=== PATIENT | female | born 1985 | race Caucasian/White ===

== ENCOUNTER 2020-01-13 11:16 | Inpatient (IN) | payer BC ==
[2020-01-13] MEDS ORDERED: Sodium Chloride 0.9% 10 ML Syringe FLUSH PRN (13:40)
[2020-01-13] MEDS ORDERED: Sodium Chloride 0.9% 10 ML SDV IV PRN (13:40)
[2020-01-13] MEDS ORDERED: Water For Irrigation,Sterile 1,000 ML Container IRR PRN (13:40)
[2020-01-13] MEDS ORDERED: Sodium Chloride 0.9% 2.5 ML Syringe FLUSH PRN (13:40)
[2020-01-13] MEDS ORDERED: Ampicillin 2 GM in Sodium Chloride 0.9% 100 ML IV ONE (14:00)
--- NOTE | 2020-01-13 14:09 | US ---
Limited obstetrical ultrasound: Multiple real-time images were obtained transabdominally. Comparison: Previous obstetrical ultrasound of 10/21/19. presentation: Cephalic Amniotic fluid: ERICH 9.04 cm which compares to 18.81 cm on prior study Heart rate: 132 bpm Impression: 1. Decreasing amniotic fluid as noted above. Diagnostic code #3 This report was dictated in MDT
[2020-01-13] MEDS ORDERED: Ampicillin 1 GM in Sodium Chloride 0.9% 50 ML IV SCH (20:00)
[2020-01-13] MEDS: Ampicillin 1 GM in Sodium Chloride 0.9% 50 ML IV SCH (20:24)
[2020-01-13] MEDS: Lactated Ringers 1,000 ML IV SCH (20:35)
[2020-01-14] MEDS: Ampicillin 1 GM in Sodium Chloride 0.9% 50 ML IV SCH ×4 (02:15→20:25)
--- NOTE | 2020-01-14 09:30 | US ---
Limited obstetrical ultrasound: Multiple real-time images were obtained transabdominally. Comparison: Previous obstetrical ultrasounds are available, most recent exam is 01/13/20. Dates: Current ultrasound: NESTOR 02/22/20, gestational age 34 weeks 3 days Earliest ultrasound (10/21/19): [facility]OR 02/15/20, gestational age 35 weeks 3 days presentation: Cephalic Amniotic fluid: ERICH of 8.55 cm which compares to 9.04 cm on most recent study Measurements: BPD: 8.29 cm - 33 weeks 3 days Head circumference: 30.96 cm - 34 weeks 4 days Abdominal circumference: 32.95 cm - 36 weeks 6 days Femur length: 6.45 cm - 33 weeks 2 days Estimated weight: 2652 g (5 lbs. 14 oz. Heart rate: 144 bpm Growth curves: Various growth parameters are variable at this later gestational age. Growth is believed to be satisfactory from previous exam. Impression: 1. Single intrauterine fetus currently cephalic in presentation. Dates as noted above. 2. Low ERICH of 8.55 comparing to 9.04 on previous study. 3. growth is felt to be appropriate from previous studies. Diagnostic code #3 This report was dictated in MDT
[2020-01-14] MEDS ORDERED: Betamethasone Acetate/Betamethasone Sod Phosphate 30 MG/5 ML MDV IM ONE ×2 (09:43→22:03)
[2020-01-14] MEDS: Docusate Sodium 100 MG Cap PO PRN ×2 (10:20→22:33)
--- NOTE | 2020-01-14 10:37 | PCM.LDHP ---
L&D History of Present Illness - General Date of Service: 01/14/20 Admit Problem/Dx: Patient Status Order with Admit Dx/Problem 01/13/20 11:18 Patient Status [ADT] Routine 01/13/20 13:40 Patient Status [ADT] Routine Admission Diagnosis/Problem Admission Diagnosis/Problem Source of Information: Patient History Limitations: Reports: No Limitations - History of Present Illness Improves with: Reports: None Worsens with: Reports: None Associated Symptoms: Reports: N - Related Data Allergies/Adverse Reactions: Allergies Allergy/AdvReac Type Severity Reaction Status Date / Time No Known Allergies Allergy Verified 01/13/20 11:33 Home Medications: Home Meds Famotidine [Pepcid] 20 mg PO DAILY 01/13/20 [History] Vits #93/Iron Fum/FA [ Formula Tablet] 1 each PO DAILY [History] Past Medical History HEENT History: Reports: Impaired Vision Gastrointestinal History: Reports: Other (See Below) Other Gastrointestinal History: Acid reflux, chronic. 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 low-level pain in back, chiropractic therapy. Neurological History: Reports: Migraines, Other (See Below) Other Neuro History: migraines are triggered by too much caffiene Endocrine/Metabolic History: Reports: Other (See Below) Other Endocrine/Metabolic History: abnormal glucose level testing. - Infectious Disease History Infectious Disease History: Reports: Chicken Pox - Past Surgical History HEENT Surgical History: Reports: None GI Surgical History: Reports: None Endocrine Surgical History: Reports: None Neurological Surgical History: Reports: None Musculoskeletal Surgical History: Reports: None Social & Family History - Tobacco Use Smoking Status *Q: Never Smoker Second Hand Smoke Exposure: No - Caffeine Use Caffeine Use: Reports: None - Recreational Drug Use Recreational Drug Use: No H&P Review of Systems - Review of Systems: Review Of Systems: See Below General: Reports: No Symptoms HEENT: Reports: No Symptoms Pulmonary: Reports: No Symptoms Cardiovascular: Reports: No Symptoms Gastrointestinal: Reports: No Symptoms Genitourinary: Reports: No Symptoms Musculoskeletal: Reports: No Symptoms Skin: Reports: No Symptoms Psychiatric: Reports: No Symptoms Neurological: Reports: No Symptoms Hematologic/Lymphatic: Reports: No Symptoms Immunologic: Reports: No Symptoms L&D Exam - Exam Exam: See Below - Vital Signs Weight: 95.254 kg - OB Specific Fundal Height In cm: 37 Contraction Intensity: Mild Movement: Active Heart Tones: Present Presentation: Vertex - Exam General: Alert, Oriented HEENT: PERRLA, Conjunctiva Clear, EACs Clear, EOMI, Hearing Intact, Mucosa Moist & [place], Nares Patent, Normal Nasal Septum, Posterior Pharynx Clear, TMs Clear Neck: Supple, Trachea Midline Lungs: Clear to Auscultation, Normal Respiratory Effort Cardiovascular: Regular Rate, Regular Rhythm GI/Abdominal Exam: Normal Bowel Sounds, Soft, Non-Tender, No Organomegaly, No Distention, No Abnormal Bruit, No Mass, Pelvis Stable Rectal Exam: Normal Exam, Normal Rectal Tone Genitourinary: Normal external exam, Normal bimanual exam, Normal speculum exam Back Exam: Normal Inspection, Full Range of Motion Extremities: Normal Inspection, Normal Range of Motion, Non-Tender, No Pedal Edema, Normal Capillary Refill Skin: Warm, Dry, Intact Neurological: Cranial Nerves Intact, Reflexes Equal Bilateral Psychiatric: Alert, Normal Affect, Normal Mood - Patient Data Lab Results Last 24 hrs: Laboratory Results - last 24 hr 01/13/20 01/14/20 01/14/20 Range/Units 14:05 05:25 05:26 WBC 11.47 H 11.17 H (4.0-11.0) K/uL RBC 4.05 L 3.91 L (4.30-5.90) M/uL Hgb 12.4 11.9 L (12.0-16.0) g/dL Hct 38.0 36.6 (36.0-46.0) % MCV 93.8 93.6 (80.0-98.0) fL MCH 30.6 30.4 (27.0-32.0) pg MCHC 32.6 32.5 (31.0-37.0) g/dL RDW Std Deviation 48.1 48.2 (28.0-62.0) fl RDW Coeff of Robert 14 14 (11.0-15.0) % Plt Count 288 291 (150-400) K/uL MPV 9.30 9.30 (7.40-12.00) fL Nucleated RBC % 0.0 0.0 /100WBC Nucleated RBCs # 0 0 K/uL Membrane Rupture POSITIVE Result Diagrams: 01/14/20 05:26 Problem List Initiated/Reviewed/Updated: Yes Orders Last 24hrs: Active Orders 24 hr Category Date Time Status Patient Status [ADT] Routine ADT 01/13/20 13:40 Active Bedrest Bathroom Privileges [RC] ASDIRECTED Care 01/13/20 13:37 Active Notify Provider [RC] PRN Care 01/13/20 13:40 Active Peripheral IV Care [RC] PRN Care 01/13/20 13:40 Active Ready for Discharge [RC] PER UNIT ROUTINE Care 01/14/20 08:25 Active Vital Signs [RC] PER UNIT ROUTINE Care 01/13/20 11:18 Inactive Vital Signs [RC] QSPRN Care 01/13/20 20:00 Active Regular Diet [DIET] Diet 01/13/20 Lunch Active Ampicillin 1 gm Med 01/13/20 20:00 Active Sodium Chloride 0.9% [Normal Saline] 50 ml IV Q6H Betamet Acet/Betamet Na Phos [Celestone Soluspan 6 MG/ Med 01/14/20 22:03 Once ML] 12 mg IM ONETIME ONE Docusate Sodium [Colace] Med 01/14/20 10:15 Ordered 100 mg PO BID PRN Lactated Ringers [Ringers, Lactated] 1,000 ml Med 01/13/20 13:45 Active IV ASDIRECTED Sodium Chloride 0.9% [Normal Saline] Med 01/13/20 13:40 Active 10 ml IV ASDIRECTED PRN Sodium Chloride 0.9% [Saline Flush] Med 01/13/20 13:40 Active 10 ml FLUSH ASDIRECTED PRN Sodium Chloride 0.9% [Saline Flush] Med 01/13/20 13:40 Active 2.5 ml FLUSH ASDIRECTED PRN Water For Irrigation,Sterile [Sterile Water for Med 01/13/20 13:40 Active Irrigation] 1,000 ml IRR ASDIRECTED PRN Peripheral IV Insertion Adult [OM.PC] Routine Oth 01/13/20 13:40 Ordered Resuscitation Status Routine Resus Stat 01/13/20 11:18 Ordered Medication Orders Betamethasone Acet/Betameth SodPhos (Celestone Soluspan 6 Mg/Ml) 12 mg IM ONETIME ONE Stop: 04/29/20 22:04 Docusate Sodium (Colace) 100 mg PO BID PRN PRN Reason: Constipation Lactated Ringer's (Ringers, Lactated) 1,000 mls @ 150 mls/hr IV ASDIRECTED [facility] Last Admin: 01/13/20 20:35 Dose: 150 mls/hr Ampicillin Sodium 1 gm/ Sodium (Chloride) 50 mls @ 100 mls/hr IV Q6H [facility] Last Admin: 01/14/20 07:53 Dose: 100 mls/hr Infusion: 01/14/20 02:45 Dose: 100 mls/hr Admin: 01/14/20 02:15 Dose: 100 mls/hr Infusion: 01/13/20 20:54 Dose: 100 mls/hr Admin: 01/13/20 20:24 Dose: 100 mls/hr Sodium Chloride (Saline Flush) 10 ml FLUSH ASDIRECTED PRN PRN Reason: Keep Vein Open Sodium Chloride (Saline Flush) 2.5 ml FLUSH ASDIRECTED PRN PRN Reason: Keep Vein Open Sodium Chloride (Normal Saline) 10 ml IV ASDIRECTED PRN PRN Reason: IV Use Sterile Water (Sterile Water For Irrigation) 1,000 ml IRR ASDIRECTED PRN PRN Reason: delivery Assessment/Plan Comment:: This patient is 34 she is nulliparous she is followed in our clinic primarily by our nurse midwifes she presented to the clinic yesterday with leaking fluid and she have AmniSur. test confirmed positive she have ultrasound which shows adequate amniotic fluid vertex presentation the patient is admitted for observation. The next day the AmniSure is the repeated and it was positive again. Ultrasound today shows a minimum degrees of amniotic fluid and estimated weight is 2652 gm the patient is still not jose alejandro. According to an early ultrasound and repeated on multiple occasion in this at her EDC confirmed and she is 35+4 weeks. The consultation with the compliance specialist steroid injection is given according to the protocol and the she consented for induction of labor. I explained the option to the patient including the option that she could be transferred to tertiary center versus induction here also explained to the patient the possibility of transferring the fetus after it is born if it is need to be. Patient and her asked multiple questions and all their question is answered. And they consented for induction here and delivered here. Start of induction at that night with side effects and Pitocin in accordance with the protocol.
[2020-01-14] MEDS ORDERED: Oxytocin/0.9 % Sodium Chloride 30 UNIT/500 ML BAG IV SCH ×2 (23:45)
[2020-01-14] MEDS ORDERED: Terbutaline 1 MG/ML SDV SUBCUT PRN (23:53)
[2020-01-14] MEDS ORDERED: Misoprostol 25 MCG (1/4 of 100 MCG) Tab VAG PRN ×2 (23:53)
[2020-01-14] MEDS ORDERED: Misoprostol 25 MCG (1/4 of 100 MCG) Tab PO ONE (23:58)
[2020-01-14] MEDS ORDERED: Methylergonovine 0.2 MG/1 ML Amp IM PRN (23:59)
[2020-01-14] MEDS ORDERED: Misoprostol 200 MCG Tab PO PRN (23:59)
[2020-01-14] MEDS ORDERED: Tranexamic Acid 1,000 MG in Sodium Chloride 0.9% 100 ML IV PRN (23:59)
[2020-01-14] MEDS ORDERED: Butorphanol 1 MG/ML SDV IVPUSH PRN (23:59)
[2020-01-14] MEDS ORDERED: Nalbuphine 10 MG/1 ML Vial IVPUSH PRN (23:59)
[2020-01-14] MEDS ORDERED: Ondansetron 4 MG/2 ML SDV IVPUSH PRN (23:59)
[2020-01-14] MEDS ORDERED: Lidocaine 1% 50 ML MDV INJECT PRN (23:59)
[2020-01-14] MEDS ORDERED: Carboprost Tromethamine 250 MCG/1 ML Amp IM PRN (23:59)
[2020-01-15] MEDS: Ampicillin 1 GM in Sodium Chloride 0.9% 50 ML IV SCH ×2 (01:50→08:10)
[2020-01-15] MEDS ORDERED: Bupivicaine/fentaNYL/NS 250 ML ONE (08:50)
[2020-01-15] MEDS ORDERED: Lactated Ringers 1,000 ML IV SCH (09:00)
--- NOTE | 2020-01-15 09:45 | PCM.PREANE ---
Preanesthetic Assessment - Anesthesia/Transfusion/Family Hx Anesthesia History: Prior Anesthesia Without Reaction (oral surgery only) Family History of Anesthesia Reaction: No Transfusion History: No Prior Transfusion(s) Intubation History: Unknown - Review of Systems General: No Symptoms Pulmonary: No Symptoms Cardiovascular: No Symptoms Gastrointestinal: Other (GERD) Neurological: Other (short stature, sacral dimple) Other: Reports: None - Physical Assessment Height: 5 ft Weight: 95.254 kg ASA Class: 2 Mental Status: Alert & Oriented x3 Airway Class: Mallampati = 3 Dentition: Reports: Normal Dentition Thyro-Mental Finger Breadths: 3 ROM/Head Extension: Full Lungs: Clear to Auscultation, Normal Respiratory Effort Cardiovascular: Regular Rate, Regular Rhythm - Lab Values: Laboratory Last Values WBC 11.17 K/uL (4.0-11.0) H 01/14/20 05:26 RBC 3.91 M/uL (4.30-5.90) L 01/14/20 05:26 Hgb 11.9 g/dL (12.0-16.0) L 01/14/20 05:26 Hct 36.6 % (36.0-46.0) 01/14/20 05:26 MCV 93.6 fL (80.0-98.0) 01/14/20 05:26 MCH 30.4 pg (27.0-32.0) 01/14/20 05:26 MCHC 32.5 g/dL (31.0-37.0) 01/14/20 05:26 RDW Std Deviation 48.2 fl (28.0-62.0) 01/14/20 05:26 RDW Coeff of Robert 14 % (11.0-15.0) 01/14/20 05:26 Plt Count 291 K/uL (150-400) 01/14/20 05:26 MPV 9.30 fL (7.40-12.00) 01/14/20 05:26 Nucleated RBC % 0.0 /100WBC 01/14/20 05:26 Nucleated RBCs # 0 K/uL 01/14/20 05:26 Membrane Rupture POSITIVE 01/14/20 05:25 Blood Type O POSITIVE 01/14/20 14:20 Antibody Screen NEGATIVE 01/14/20 14:20 - Allergies Allergies/Adverse Reactions: Allergies Allergy/AdvReac Type Severity Reaction Status Date / Time No Known Allergies Allergy Verified 01/13/20 11:33 - Acknowledgements Anesthesia Type Planned: Epidural Pt an Appropriate Candidate for the Planned Anesthesia: Yes Alternatives and Risks of Anesthesia Discussed w Pt/Guardian: Yes Pt/Guardian Understands and Agrees with Anesthesia Plan: Yes PreAnesthesia Questionnaire HEENT History: Reports: Impaired Vision Gastrointestinal History: Reports: Other (See Below) Other Gastrointestinal History: Acid reflux, chronic. 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 low-level pain in back, chiropractic therapy. Neurological History: Reports: Migraines, Other (See Below) Other Neuro History: migraines are triggered by too much caffiene Endocrine/Metabolic History: Reports: Other (See Below) Other Endocrine/Metabolic History: abnormal glucose level testing. - Infectious Disease History Infectious Disease History: Reports: Chicken Pox - Past Surgical History HEENT Surgical History: Reports: None GI Surgical History: Reports: None Endocrine Surgical History: Reports: None Neurological Surgical History: Reports: None Musculoskeletal Surgical History: Reports: None - SUBSTANCE USE Smoking Status *Q: Never Smoker Second Hand Smoke Exposure: No Recreational Drug Use History: No - HOME MEDS Home Medications: Home Meds Famotidine [Pepcid] 20 mg PO DAILY 01/13/20 [History] Vits #93/Iron Fum/FA [ Formula Tablet] 1 each PO DAILY [History] - CURRENT (IN HOUSE) MEDS Current Meds: Current Medications Butorphanol Tartrate (Stadol) 1 mg IVPUSH Q1H PRN PRN Reason: Pain Carboprost Tromethamine (Hemabate Ds) 250 mcg IM ASDIRECTED PRN PRN Reason: Post Hemorrhage Docusate Sodium (Colace) 100 mg PO BID PRN PRN Reason: Constipation Last Admin: 01/14/20 22:33 Dose: 100 mg Lactated Ringer's (Ringers, Lactated) 1,000 mls @ 150 mls/hr IV ASDIRECTED [facility] Last Admin: 01/13/20 20:35 Dose: 150 mls/hr Ampicillin Sodium 1 gm/ Sodium (Chloride) 50 mls @ 100 mls/hr IV Q6H [facility] Last Admin: 01/15/20 08:10 Dose: 100 mls/hr Oxytocin/Sodium Chloride (Oxytocin 30 Unit/500 Ml-Ns) 30 unit in 500 mls @ 2 mls/hr IV TITRATE [facility]; Protocol Oxytocin/Sodium Chloride (Oxytocin 30 Unit/500 Ml-Ns) 30 unit in 500 mls @ 999 mls/hr IV TITRATE [facility] Tranexamic Acid 1,000 mg/ (Sodium Chloride) 110 mls @ 660 mls/hr IV ONETIME PRN PRN Reason: Bleeding Lactated Ringer's (Ringers, Lactated) 1,000 mls @ 150 mls/hr IV ASDIRECTED [facility] Lidocaine HCl (Xylocaine 1%) 50 ml INJECT ONETIME PRN PRN Reason: Laceration repair Methylergonovine Maleate (Methergine) 0.2 mg IM ASDIRECTED PRN PRN Reason: Post Hemorrhage Misoprostol (Cytotec) 25 mcg VAG ONETIME PRN PRN Reason: Cervical Ripening Last Admin: 01/15/20 00:23 Dose: 25 mcg Misoprostol (Cytotec) 25 mcg VAG Q4H PRN PRN Reason: Cervical Ripening Misoprostol (Cytotec) 200 mcg PO ONETIME PRN PRN Reason: Post Hemorrhage Nalbuphine HCl (Nubain) 10 mg IVPUSH Q1H PRN PRN Reason: Pain (severe 7-10) Ondansetron HCl (Zofran) 4 mg IVPUSH Q4H PRN PRN Reason: Nausea/Vomiting Sodium Chloride (Saline Flush) 10 ml FLUSH ASDIRECTED PRN PRN Reason: Keep Vein Open Sodium Chloride (Saline Flush) 2.5 ml FLUSH ASDIRECTED PRN PRN Reason: Keep Vein Open Sodium Chloride (Normal Saline) 10 ml IV ASDIRECTED PRN PRN Reason: IV Use Sterile Water (Sterile Water For Irrigation) 1,000 ml IRR ASDIRECTED PRN PRN Reason: delivery Terbutaline Sulfate (Brethine) 0.25 mg SUBCUT ASDIRECTED PRN PRN Reason: Tacysystole Discontinued Medications Betamethasone Acet/Betameth SodPhos (Celestone Soluspan 6 Mg/Ml) 12 mg IM ONETIME ONE Stop: 01/14/20 09:44 Last Admin: 01/14/20 10:03 Dose: 12 mg Betamethasone Acet/Betameth SodPhos (Celestone Soluspan 6 Mg/Ml) 12 mg IM ONETIME ONE Stop: 01/14/20 22:04 Last Admin: 01/14/20 22:10 Dose: 12 mg Ampicillin Sodium 2 gm/ Sodium (Chloride) 100 mls @ 200 mls/hr IV ONETIME ONE Stop: 01/13/20 14:29 Last Admin: 01/13/20 14:51 Dose: 200 mls/hr Fentanyl/Bupivacaine HCl (Fentanyl/Bupivacaine/Ns 2 Mcg-0.125% 250 Ml) Confirm Administered Dose 250 mls @ as directed .ROUTE .STK-MED ONE Stop: 01/15/20 08:51 Misoprostol (Cytotec) 25 mcg PO ONETIME ONE Stop: 01/14/20 23:59 Last Admin: 01/15/20 00:23 Dose: 25 mcg
[2020-01-15] MEDS ORDERED: fentaNYL 100 MCG/2 ML SDV ONE (09:54)
[2020-01-15] MEDS ORDERED: Bupivacaine 0.25% 10 ML SDV ONE (09:54)
[2020-01-15] MEDS ORDERED: ePHEDrine 50 MG/ML SDV ONE (10:33)
[2020-01-15] MEDS ORDERED: ePHEDrine 50 MG/ML SDV IVPUSH ONE (10:38)
[2020-01-15] MEDS: Lactated Ringers 1,000 ML IV SCH (16:43)
[2020-01-15] MEDS ORDERED: oxyCODONE 5 MG Tab PO PRN (18:13)
[2020-01-15] MEDS ORDERED: Witch Hazel Medicated Pads 40/Jar TOP PRN (18:13)
[2020-01-15] MEDS ORDERED: Lanolin 100% Cream 7 GM Tube TOP PRN (18:13)
[2020-01-15] MEDS ORDERED: Docusate Sodium 100 MG Cap PO PRN (18:13)
[2020-01-15] MEDS ORDERED: Benzocaine/Menthol 20%-0.5% Spray 78 GM Cannister TOP PRN (18:13)
[2020-01-15] MEDS ORDERED: Ibuprofen 400 MG Tab PO PRN (18:13)
[2020-01-15] MEDS ORDERED: Acetaminophen 500 MG Tab PO PRN ×2 (18:13)
[2020-01-15] MEDS ORDERED: Ibuprofen 800 MG Tab PO PRN (18:13)
[2020-01-15] MEDS ORDERED: Bisacodyl 10 MG Supp RECTAL PRN (18:13)
--- NOTE | 2020-01-16 06:31 | PCM.POSTAN ---
POST ANESTHESIA ASSESSMENT - MENTAL STATUS Mental Status: Alert, Oriented - VITAL SIGNS Vital Signs: Last Vital Signs Temp 36.7 C 01/16/20 04:00 Pulse 86 01/16/20 04:00 Resp 16 01/16/20 04:00 BP 112/60 01/16/20 04:00 Pulse Ox 100 01/16/20 04:00 - RESPIRATORY Respiratory Status: Respiratory Rate WNL, Airway Patent, O2 Saturation Stable - CARDIOVASCULAR CV Status: Pulse Rate WNL, Blood Pressure Stable - GASTROINTESTINAL GI Status: No Symptoms - PAIN Pain Score: 2 (back is tender) - POST OP HYDRATION Hydration Status: Adequate & Stable
--- NOTE | 2020-01-16 07:06 | PCM48HPAN ---
Post Anesthesia Note - EVALUATION WITHIN 48HRS OF ANESTHETIC Vital Signs in Normal Range: Yes Patient Participated in Evaluation: Yes Respiratory Function Stable: Yes Airway Patent: Yes Cardiovascular Function Stable: Yes Hydration Status Stable: Yes Pain Control Satisfactory: Yes Nausea and Vomiting Control Satisfactory: Yes Mental Status Recovered: Yes Vital Signs: Last Vital Signs Temp 36.7 C 01/16/20 04:00 Pulse 86 01/16/20 04:00 Resp 16 01/16/20 04:00 BP 112/60 01/16/20 04:00 Pulse Ox 100 01/16/20 04:00
--- NOTE | 2020-01-16 08:21 | PCM.DCSUM1 ---
Discharge Summary - Hospital Course Free Text/Narrative:: Discharge home with . Follow up in 6 weeks for or sooner if needed. 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 Follow up in 6 weeks for or sooner if needed. - Discharge Plan *PRESCRIPTION DRUG MONITORING PROGRAM REVIEWED*: Not Applicable *COPY OF PRESCRIPTION DRUG MONITORING REPORT IN PATIENT NEEL: Not Applicable Prescriptions/Med Rec: Ibuprofen [Motrin] 800 mg PO Q6H PRN #90 tablet PRN Reason: Pain Home Medications: Home Meds Famotidine [Pepcid] 20 mg PO DAILY 01/13/20 [History] Vits #93/Iron Fum/FA [ Formula Tablet] 1 each PO DAILY [History] Ibuprofen [Motrin] 800 mg PO Q6H PRN #90 tablet 01/16/20 [Rx] Oxygen Therapy Mode: Room Air Referrals: [facility] [Outside] Landon Bingham MD [Physician] - 02/25/20 3:00 pm - Discharge Summary/Plan Comment DC Time >30 min.: Yes - General Info Date of Service: 01/16/20 Admission Dx/Problem (Free Text: Patient Status Order with Admit Dx/Problem 01/13/20 11:18 Patient Status [ADT] Routine 01/13/20 13:40 Patient Status [ADT] Routine Admission Diagnosis/Problem Admission Diagnosis/Problem Functional Status: Reports: Pain Controlled, Tolerating Diet, Ambulating, Urinating - Review of Systems General: Reports: No Symptoms HEENT: Reports: No Symptoms Pulmonary: Reports: No Symptoms Cardiovascular: Reports: No Symptoms Gastrointestinal: Reports: No Symptoms Genitourinary: Reports: No Symptoms Musculoskeletal: Reports: No Symptoms Skin: Reports: No Symptoms Neurological: Reports: No Symptoms Psychiatric: Reports: No Symptoms - Patient Data Vitals - Most Recent: Last Vital Signs Temp 36.3 C 01/16/20 08:00 Pulse 85 01/16/20 08:00 Resp 16 01/16/20 08:00 BP 108/55 L 01/16/20 08:00 Pulse Ox 97 01/16/20 08:00 Weight - Most Recent: 95.254 kg I&O - Last 24 hours: Intake & Output 01/15/20 01/16/20 01/16/20 22:59 06:59 14:59 Intake Total 1175 Output Total 175 Balance 1000 Lab Results - Last 24 hrs: Laboratory Results - last 24 hr 01/15/20 Range/Units 14:08 POC Glucose 109 (60-110) mg/dL Med Orders - Current: Current Medications Acetaminophen (Tylenol Extra Strength) 500 mg PO Q4H PRN PRN Reason: Pain Acetaminophen (Tylenol Extra Strength) 1,000 mg PO Q4H PRN PRN Reason: Pain Benzocaine/Menthol (Dermoplast Pain Relief 20%-0.5% Comfort) 78 gm TOP ASDIRECTED PRN PRN Reason: Perineal Comfort Measure Last Admin: 01/15/20 21:30 Dose: 78 gm Bisacodyl (Dulcolax) 10 mg RECTAL ONETIME PRN PRN Reason: Constipation Docusate Sodium (Colace) 100 mg PO BID PRN PRN Reason: Constipation Emollient Ointment (Lansinoh Hpa) 0 gm TOP ASDIRECTED PRN PRN Reason: Sore Nipples Ibuprofen (Motrin) 400 mg PO Q4H PRN PRN Reason: Pain Ibuprofen (Motrin) 800 mg PO Q6H PRN PRN Reason: Pain Oxycodone HCl (Oxycodone) 5 mg PO Q2H PRN PRN Reason: Pain Witch Gertrudis (Tucks) 1 pad TOP ASDIRECTED PRN PRN Reason: comfort care Last Admin: 01/15/20 21:30 Dose: 1 pad Discontinued Medications Betamethasone Acet/Betameth SodPhos (Celestone Soluspan 6 Mg/Ml) 12 mg IM ONETIME ONE Stop: 01/14/20 09:44 Last Admin: 01/14/20 10:03 Dose: 12 mg Betamethasone Acet/Betameth SodPhos (Celestone Soluspan 6 Mg/Ml) 12 mg IM ONETIME ONE Stop: 01/14/20 22:04 Last Admin: 01/14/20 22:10 Dose: 12 mg Bupivacaine HCl (Sensorcaine-Mpf 0.25%) Confirm Administered Dose 10 ml .ROUTE .STK-MED ONE Stop: 01/15/20 09:55 Butorphanol Tartrate (Stadol) 1 mg IVPUSH Q1H PRN PRN Reason: Pain Carboprost Tromethamine (Hemabate Ds) 250 mcg IM ASDIRECTED PRN PRN Reason: Post Hemorrhage Docusate Sodium (Colace) 100 mg PO BID PRN PRN Reason: Constipation Last Admin: 01/14/20 22:33 Dose: 100 mg Ephedrine Sulfate (Ephedrine Sulfate) Confirm Administered Dose 50 mg .ROUTE .STK-MED ONE Stop: 01/15/20 10:34 Ephedrine Sulfate (Ephedrine Sulfate) 10 mg IVPUSH ONETIME ONE Stop: 01/15/20 10:39 Last Admin: 01/15/20 10:36 Dose: 10 mg Fentanyl (Sublimaze) Confirm Administered Dose 100 mcg .ROUTE .STK-MED ONE Stop: 01/15/20 09:55 Lactated Ringer's (Ringers, Lactated) 1,000 mls @ 150 mls/hr IV ASDIRECTED ERICK Last Admin: 01/15/20 16:43 Dose: 150 mls/hr Ampicillin Sodium 2 gm/ Sodium (Chloride) 100 mls @ 200 mls/hr IV ONETIME ONE Stop: 01/13/20 14:29 Last Admin: 01/13/20 14:51 Dose: 200 mls/hr Ampicillin Sodium 1 gm/ Sodium (Chloride) 50 mls @ 100 mls/hr IV Q6H ERICK Last Admin: 01/15/20 08:10 Dose: 100 mls/hr Oxytocin/Sodium Chloride (Oxytocin 30 Unit/500 Ml-Ns) 30 unit in 500 mls @ 2 mls/hr IV TITRATE ERICK; Protocol Oxytocin/Sodium Chloride (Oxytocin 30 Unit/500 Ml-Ns) 30 unit in 500 mls @ 999 mls/hr IV TITRATE ERICK Last Admin: 01/15/20 18:13 Dose: 500 mls/hr Tranexamic Acid 1,000 mg/ (Sodium Chloride) 110 mls @ 660 mls/hr IV ONETIME PRN PRN Reason: Bleeding Fentanyl/Bupivacaine HCl (Fentanyl/Bupivacaine/Ns 2 Mcg-0.125% 250 Ml) Confirm Administered Dose 250 mls @ as directed .ROUTE .STK-MED ONE Stop: 01/15/20 08:51 Lactated Ringer's (Ringers, Lactated) 1,000 mls @ 150 mls/hr IV ASDIRECTED [facility] Last Admin: 01/15/20 11:36 Dose: 150 mls/hr Lidocaine HCl (Xylocaine 1%) 50 ml INJECT ONETIME PRN PRN Reason: Laceration repair Last Admin: 01/15/20 18:17 Dose: 50 ml Methylergonovine Maleate (Methergine) 0.2 mg IM ASDIRECTED PRN PRN Reason: Post Hemorrhage Misoprostol (Cytotec) 25 mcg VAG ONETIME PRN PRN Reason: Cervical Ripening Last Admin: 01/15/20 00:23 Dose: 25 mcg Misoprostol (Cytotec) 25 mcg VAG Q4H PRN PRN Reason: Cervical Ripening Misoprostol (Cytotec) 25 mcg PO ONETIME ONE Stop: 01/14/20 23:59 Last Admin: 01/15/20 00:23 Dose: 25 mcg Misoprostol (Cytotec) 200 mcg PO ONETIME PRN PRN Reason: Post Hemorrhage Nalbuphine HCl (Nubain) 10 mg IVPUSH Q1H PRN PRN Reason: Pain (severe 7-10) Ondansetron HCl (Zofran) 4 mg IVPUSH Q4H PRN PRN Reason: Nausea/Vomiting Sodium Chloride (Saline Flush) 10 ml FLUSH ASDIRECTED PRN PRN Reason: Keep Vein Open Sodium Chloride (Saline Flush) 2.5 ml FLUSH ASDIRECTED PRN PRN Reason: Keep Vein Open Sodium Chloride (Normal Saline) 10 ml IV ASDIRECTED PRN PRN Reason: IV Use Sterile Water (Sterile Water For Irrigation) 1,000 ml IRR ASDIRECTED PRN PRN Reason: delivery Terbutaline Sulfate (Brethine) 0.25 mg SUBCUT ASDIRECTED PRN PRN Reason: Tacysystole - Exam General: Reports: Alert, Oriented, Cooperative, No Acute Distress Lungs: Reports: Normal Respiratory Effort GI/Abdominal Exam: Soft, Non-Tender, No Distention, Pelvis Stable (Female) Exam: Deferred, Vaginal Bleeding, Vaginal Tears. No: Cervical Lesions Rectal (Female) Exam: Deferred Back Exam: Reports: Normal Inspection, Full Range of Motion Extremities: Normal Inspection, Normal Range of Motion, Non-Tender, No Pedal Edema Skin: Reports: Warm, Dry, Intact Wound/Incisions: Reports: Healing Well Neurological: Reports: No New Focal Deficit, Normal Speech, Normal Tone, Strength Equal Bilateral, Sensation Intact Psy/Mental Status: Reports: Alert
--- NOTE | 2020-01-16 08:42 | OR ---
SURGEON: Landon Bingham MD DATE OF PROCEDURE: 01/15/2020 DELIVERY NOTE: Ms. Okeefe is a 34-year-old primigravida. She is followed in our clinic primarily by our nurse manager competitive intelligence. She is 35 plus 4. She is having spontaneous rupture of the membrane that was confirmed. The patient is managed expectantly. She was started on antibiotic and she had a steroid injection, and then after 36 hours of observation, the patient started having contraction on her own. She was 4 to 5 cm and she required 1 dose of Cytotec to augment her labor and then she proceeded to progress. She had epidural anesthesia for labor analgesia, and the patient had progressed to complete-complete, and she pushed and she brought the baby to +2. She was rather exhausted and tired, and so after consultation with the patient, we elected to do a vacuum extraction, and a Kiwi vacuum extraction was performed with 2 pulls that I was able to deliver the fetus. The fetus cried immediately. score reported to be 8 and 9, and the weight is [address] Looney, the commercial relief driver was in attendance of the delivery. The placenta delivered spontaneous, complete, and intact. There was a 3rd-degree perineal laceration identified and repaired with 3-0 Vicryl in layers. Estimated blood loss was 300 to 350 mL. heart rate was category 1 through the entire process of labor and the delivery. There was no complication in the management of the labor and delivery. heart rate was category 1. SIXTO / HUMBERTO /[id number]
--- NOTE | 2020-01-17 09:42 | PCM.PNPP ---
- General Info Date of Service: 01/17/20 Functional Status: Reports: Pain Controlled - Review of Systems General: Reports: No Symptoms HEENT: Reports: No Symptoms Pulmonary: Reports: No Symptoms Cardiovascular: Reports: No Symptoms Gastrointestinal: Reports: No Symptoms Genitourinary: Reports: No Symptoms Musculoskeletal: Reports: No Symptoms Skin: Reports: No Symptoms Neurological: Reports: No Symptoms Psychiatric: Reports: No Symptoms - General Info Date of Service: 01/17/20 - Patient Data Vital Signs - Most Recent: Last Vital Signs Temp 36.3 C 01/17/20 08:00 Pulse 87 01/17/20 08:00 Resp 18 01/17/20 08:00 BP 108/65 01/17/20 08:00 Pulse Ox 97 01/17/20 08:00 Weight - Most Recent: 95.254 kg Lab Results - Last 24 Hours: Laboratory Results - last 24 hr 01/14/20 Range/Units 14:20 RPR Non-Reac (Non-Reac) Med Orders - Current: Current Medications Acetaminophen (Tylenol Extra Strength) 500 mg PO Q4H PRN PRN Reason: Pain Acetaminophen (Tylenol Extra Strength) 1,000 mg PO Q4H PRN PRN Reason: Pain Benzocaine/Menthol (Dermoplast Pain Relief 20%-0.5% [place]) 78 gm TOP ASDIRECTED PRN PRN Reason: Perineal Comfort Measure Last Admin: 01/15/20 21:30 Dose: 78 gm Bisacodyl (Dulcolax) 10 mg RECTAL ONETIME PRN PRN Reason: Constipation Docusate Sodium (Colace) 100 mg PO BID PRN PRN Reason: Constipation Emollient Ointment (Lansinoh Hpa) 0 gm TOP ASDIRECTED PRN PRN Reason: Sore Nipples Ibuprofen (Motrin) 400 mg PO Q4H PRN PRN Reason: Pain Ibuprofen (Motrin) 800 mg PO Q6H PRN PRN Reason: Pain Oxycodone HCl (Oxycodone) 5 mg PO Q2H PRN PRN Reason: Pain Witch Gertrudis (Tucks) 1 pad TOP ASDIRECTED PRN PRN Reason: comfort care Last Admin: 01/15/20 21:30 Dose: 1 pad Discontinued Medications Betamethasone Acet/Betameth SodPhos (Celestone Soluspan 6 Mg/Ml) 12 mg IM ONETIME ONE Stop: 01/14/20 09:44 Last Admin: 01/14/20 10:03 Dose: 12 mg Betamethasone Acet/Betameth SodPhos (Celestone Soluspan 6 Mg/Ml) 12 mg IM ONETIME ONE Stop: 01/14/20 22:04 Last Admin: 01/14/20 22:10 Dose: 12 mg Bupivacaine HCl (Sensorcaine-Mpf 0.25%) Confirm Administered Dose 10 ml .ROUTE .STK-MED ONE Stop: 01/15/20 09:55 Butorphanol Tartrate (Stadol) 1 mg IVPUSH Q1H PRN PRN Reason: Pain Carboprost Tromethamine (Hemabate Ds) 250 mcg IM ASDIRECTED PRN PRN Reason: Post Hemorrhage Docusate Sodium (Colace) 100 mg PO BID PRN PRN Reason: Constipation Last Admin: 01/14/20 22:33 Dose: 100 mg Ephedrine Sulfate (Ephedrine Sulfate) Confirm Administered Dose 50 mg .ROUTE .STK-MED ONE Stop: 01/15/20 10:34 Ephedrine Sulfate (Ephedrine Sulfate) 10 mg IVPUSH ONETIME ONE Stop: 01/15/20 10:39 Last Admin: 01/15/20 10:36 Dose: 10 mg Fentanyl (Sublimaze) Confirm Administered Dose 100 mcg .ROUTE .STK-MED ONE Stop: 01/15/20 09:55 Lactated Ringer's (Ringers, Lactated) 1,000 mls @ 150 mls/hr IV ASDIRECTED ERICK Last Admin: 01/15/20 16:43 Dose: 150 mls/hr Ampicillin Sodium 2 gm/ Sodium (Chloride) 100 mls @ 200 mls/hr IV ONETIME ONE Stop: 01/13/20 14:29 Last Admin: 01/13/20 14:51 Dose: 200 mls/hr Ampicillin Sodium 1 gm/ Sodium (Chloride) 50 mls @ 100 mls/hr IV Q6H ERICK Last Admin: 01/15/20 08:10 Dose: 100 mls/hr Oxytocin/Sodium Chloride (Oxytocin 30 Unit/500 Ml-Ns) 30 unit in 500 mls @ 2 mls/hr IV TITRATE ERICK; Protocol Oxytocin/Sodium Chloride (Oxytocin 30 Unit/500 Ml-Ns) 30 unit in 500 mls @ 999 mls/hr IV TITRATE ERICK Last Admin: 01/15/20 18:13 Dose: 500 mls/hr Tranexamic Acid 1,000 mg/ (Sodium Chloride) 110 mls @ 660 mls/hr IV ONETIME PRN PRN Reason: Bleeding Fentanyl/Bupivacaine HCl (Fentanyl/Bupivacaine/Ns 2 Mcg-0.125% 250 Ml) Confirm Administered Dose 250 mls @ as directed .ROUTE .STK-MED ONE Stop: 01/15/20 08:51 Lactated Ringer's (Ringers, Lactated) 1,000 mls @ 150 mls/hr IV ASDIRECTED [facility] Last Admin: 01/15/20 11:36 Dose: 150 mls/hr Lidocaine HCl (Xylocaine 1%) 50 ml INJECT ONETIME PRN PRN Reason: Laceration repair Last Admin: 01/15/20 18:17 Dose: 50 ml Methylergonovine Maleate (Methergine) 0.2 mg IM ASDIRECTED PRN PRN Reason: Post Hemorrhage Misoprostol (Cytotec) 25 mcg VAG ONETIME PRN PRN Reason: Cervical Ripening Last Admin: 01/15/20 00:23 Dose: 25 mcg Misoprostol (Cytotec) 25 mcg VAG Q4H PRN PRN Reason: Cervical Ripening Misoprostol (Cytotec) 25 mcg PO ONETIME ONE Stop: 01/14/20 23:59 Last Admin: 01/15/20 00:23 Dose: 25 mcg Misoprostol (Cytotec) 200 mcg PO ONETIME PRN PRN Reason: Post Hemorrhage Nalbuphine HCl (Nubain) 10 mg IVPUSH Q1H PRN PRN Reason: Pain (severe 7-10) Ondansetron HCl (Zofran) 4 mg IVPUSH Q4H PRN PRN Reason: Nausea/Vomiting Sodium Chloride (Saline Flush) 10 ml FLUSH ASDIRECTED PRN PRN Reason: Keep Vein Open Sodium Chloride (Saline Flush) 2.5 ml FLUSH ASDIRECTED PRN PRN Reason: Keep Vein Open Sodium Chloride (Normal Saline) 10 ml IV ASDIRECTED PRN PRN Reason: IV Use Sterile Water (Sterile Water For Irrigation) 1,000 ml IRR ASDIRECTED PRN PRN Reason: delivery Terbutaline Sulfate (Brethine) 0.25 mg SUBCUT ASDIRECTED PRN PRN Reason: Tacysystole - Infant Interaction Disposition, : [place] in Room with Family Infant Interaction: Holding Infant Infant Feeding: Attempted ; Nursed Fair/Poor Support Person: - Recovery Exam Fundal Tone: Firm Fundal Level: 1 Fingerbreadths Below Umbilicus Fundal Placement: Midline Lochia Amount: Scant Lochia Color: Rubra/Red Bladder Status: Voiding - Exam General: Alert, Oriented HEENT: Pupils Equal Neck: Supple Lungs: Clear to Auscultation, Normal Respiratory Effort Cardiovascular: Regular Rate, Regular Rhythm GI/Abdominal Exam: Normal Bowel Sounds, Soft, Non-Tender, No Organomegaly, No Distention, No Abnormal Bruit, No Mass, Pelvis Stable Extremities: Normal Inspection, Normal Range of Motion, Non-Tender, No Pedal Edema, Normal Capillary Refill Skin: Warm, Dry, Intact Wound/Incisions: Healing Well Neurological: No New Focal Deficit Psy/Mental Status: Alert, Normal Affect, Normal Mood - Problem List Review Problem List Initiated/Reviewed/Updated: Yes - Plan Plan:: This patient is 34 she is nulliparous she is followed in our clinic primarily by our nurse midwifes she presented to the clinic yesterday with leaking fluid and she have AmniSur. test confirmed positive she have ultrasound which shows adequate amniotic fluid vertex presentation the patient is admitted for observation. The next day the AmniSure is the repeated and it was positive again. Ultrasound today shows a minimum degrees of amniotic fluid and estimated weight is 2652 gm the patient is still not jose alejandro. According to an early ultrasound and repeated on multiple occasion in this at her EDC confirmed and she is 35+4 weeks. The consultation with the social service technician steroid injection is given according to the protocol and the she consented for induction of labor. I explained the option to the patient including the option that she could be transferred to tertiary center versus induction here also explained to the patient the possibility of transferring the fetus after it is born if it is need to be. Patient and her asked multiple questions and all their question is answered. And they consented for induction here and delivered here. Start of induction at that night with side effects and Pitocin in accordance with the protocol.
== END 2020-01-17 16:02 | disposition home or self-care (01) | DRG 542 ==
LOC: MW.OBCHECK 11:16 → MW.OB 11:17 → MW.OBCHECK 13:40 → OBSVTOIN 01-15 18:07 → MW.OB 01-15 21:30
PROVIDERS: ADMIT Obstetrics & Gynecology; ATTEND Obstetrics & Gynecology
PROC: 10D07Z6 Extraction of Products of Conception, Vacuum, Via Natural or Artificial Opening (ICD-10-PCS; principal; 2020-01-15)
PROC: 0DQR0ZZ Repair Anal Sphincter, Open Approach (ICD-10-PCS; 2020-01-15)
PROC: 3E0R3BZ Introduction of Anesthetic Agent into Spinal Canal, Percutaneous Approach (ICD-10-PCS; 2020-01-15)
DX: O70.20 Third degree perineal laceration during delivery, unspecified (principal); Z3A.35 35 weeks gestation of pregnancy; Z37.0 Single live birth
CPT/HCPCS: 01967; 36415; 51702; 59025; 59409; 76815; 76815-26; 82962; 84112; 85027; 86592; 86593; 86850; 86900; 86901; A9270-GY; J0290; J0702; J2001; J2590; J7050; J7120

== ENCOUNTER 2023-07-21 09:23 | Emergency (ER) | payer BC | END 2023-07-21 10:23 | disposition home or self-care (01) | LOC: MW.ED 09:23 | DX: H53.141 Visual discomfort, right eye (principal); H57.89 Other specified disorders of eye and adnexa | CPT/HCPCS: 99282; 99283 ==